=== PATIENT | male | born 1965 | race Caucasian/White ===

== ENCOUNTER 2018-09-26 16:05 | Emergency (ER) | payer OTHER ==
[~2018-09-26] VITALS: Ht 185.4 cm; Wt 127.0 kg
[2018-09-26 16:05] VITALS: BP_SYST 149
[2018-09-26] MEDS ORDERED: DIPH-TET-PERTUS Vaccine 0.5 ML VIAL (ADACEL) I.M. ONE (16:30)
[2018-09-26] MEDS ORDERED: BACITRACIN 1 GM OINT TP ONE (17:00)
[2018-09-26 17:10] VITALS: BP_SYST 149
== END 2018-09-26 17:10 | disposition home or self-care (01) ==
LOC: SED 16:05
DX: S60.470A Other superficial bite of right index finger, initial encounter (principal); L08.89 Other specified local infections of the skin and subcutaneous tissue; W54.0XXA Bitten by dog, initial encounter; Y93.89 Activity, other specified; Y92.89 Other specified places as the place of occurrence of the external cause; Y99.8 Other external cause status
CPT/HCPCS: 90715; 99283